=== PATIENT | female | born 1935 | race Caucasian/White ===

== ENCOUNTER 2017-02-13 12:24 | Outpatient (CLI) | payer MEDICARE ==
[2017-02-13 14:05] LABS: ALT (SGPT) 27 U/L (0-55); AST (SGOT) 18 U/L (5-34); Albumin 3.9 g/dL (3.4-4.8); Alkaline Phosphatase 65 U/L (40-150); Anion Gap 14 mmol/L (10-20); BUN (Urea Nitrogen) 18 mg/dL (9.8-20.1); Bilirubin, Total 0.9 mg/dL (0.2-1.2); Calc. Creatinine Clearance 0 mL/min (70-130); Calcium 9.1 mg/dL (7.8-10.44); Carbon Dioxide 26 mmol/L (23-31); Cardiac Risk 2.9 (Less than 4.5); Chloride 106 mmol/L (98-107); Cholesterol 171 mg/dL (< 200 Desired); Estimated GFR-MDRD 63; Globulin 2.6 g/dL (2.4-3.5); Glucose 83 mg/dL (83-110); HDL Cholesterol 58 mg/dL (>60 Neg Risk); LDL Cholesterol, Calculated 103 mg/dL; Potassium 4.2 mmol/L (3.5-5.1); Protein, Total 6.5 g/dL (5.8-8.1); Sodium 142 mmol/L (136-145); Triglycerides 51 mg/dL (Less than 150)
[2017-02-13 14:06] LABS: #Basophils 0.1 thou/uL (0.0-0.2); #Eosinphils 0.2 thou/uL (0.0-0.7); #Lymphocytes 1.5 thou/uL (1.20-3.40); #Monocytes 0.4 thou/uL (0.11-0.59); #Neutrophils 4.4 thou/uL (1.40-6.50); %Eosinophils 2.8 % (0.0-10.0); %Monocytes 6.7 % (0.0-10.0); %Neutrophils 66.5 % (42.0-75.0); Hemoglobin 13.8 g/dL (12.0-16.0); Mean Corpuscular HGB CONC 33.3 g/dL (32.0-36.0); Mean Corpuscular Hemoglobin 30.4 pg (27.0-31.0); Mean Corpuscular Volume 91.3 fl (81.0-99.0); Mean Platelet Volume 7.6 fL (7.4-10.4); Platelet Count 193 thou/uL (130-400); RBC Distribution Width 12.7 % (11.5-14.5); Red Blood Cell (RBC) Count 4.53 mill/uL (4.20-5.40); White Blood Cell (WBC) Count 6.6 thou/uL (4.8-10.8)
[2017-02-13 15:02] LABS: Bilirubin Negative (Negative); Blood, Urine Negative (Negative); Clarity SL HAZY (Clear); Glucose, Urine (Dipstick) Negative (Negative); Leukocyte Negative (Negative); Nitrite Negative (Negative); Protein, Urine (Dipstick) Negative (Neg-Trace); Urobilinogen 0.2 mg/dL (0.2-1.0); pH, Urine 6.5 (5.0-9.0)
== END 2017-02-13 12:25 | disposition home or self-care (01) ==
LOC: NAVSJIPCSP 12:24
PROVIDERS: ATTEND Internal Medicine
DX: C50.919 Malignant neoplasm of unspecified site of unspecified female breast (principal); M19.90 Unspecified osteoarthritis, unspecified site; I10 Essential (primary) hypertension; K21.9 Gastro-esophageal reflux disease without esophagitis; M25.551 Pain in right hip
CPT/HCPCS: 36415; 80053; 80061; 81003; 84443; 85025

== ENCOUNTER 2019-11-26 05:15 | Emergency (ER) | payer MEDICARE ==
[2019-11-26] MEDS ORDERED: Ondansetron PF 4 MG/2 ML Vial ONE (07:31)
[2019-11-26] MEDS ORDERED: Morphine 4 MG/ML VIAL ONE (07:31)
--- NOTE | 2019-11-26 07:42 | CT ---
PRELIMINARY REPORT/DIRECT RADIOLOGY/EMERGENCY AFTER HOURS PROCEDURE: PROCEDURE: CT Pelvis without IV Contrast Material . HISTORY: History . TECHNIQUE: Axial images were performed without IV contrast with multiplanar reconstructions. COMPARISONS: None . FINDINGS: Impacted subcapital femoral neck fracture on the LEFT. No other fracture or dislocation. Mild to mo derate osteoarthritic changes both hips with joint space narrowing and spur formation. Severely degenerated disc L5-S1 with vacuum phenomenon. Partially visualized 6 cm lipoma involving external o blique muscle on the LEFT. No other soft tissue abnormality. IMPRESSION: Acute impacted subcapital femoral neck fracture on the LEFT. No other acute change iden tified. ELECTRONICALLY SIGNED BY: Misha Clark MD Nov 26, 2019 6:40:46 AM SURVEYOR [employer]PER FINAL REPORT CT PELVIS WITHOUT CONTRAST: History: Fall. Pain. Comparison: Radiograph same day. Findings: Atypical fat-containing mass within the left oblique musculature. Asymmetric enlargement of the left external iliac vein. Inflammatory changes along the left anterior hip with small left pelvic sidewall hematoma. There is also hematoma extending into the left iliacus and psoas muscle. Acute impacted left femoral neck fracture. The obturator ring is intact. Impression: Findings and impression are concordant with the preliminary report. Transcribed Date/Time: 11/26/2019 7:51 AM
--- NOTE | 2019-11-26 07:48 | RAD ---
XR Hip Lt 2-3 View History: Pain. Fall Comparison: PET/CT exam 2019 Findings: Acute impacted left femoral neck fracture Impression: Acute impacted left femoral neck fracture.
--- NOTE | 2019-11-26 07:49 | RAD ---
XR Pelvis AP STANDARD History: Pain. Fall Comparison: None. Findings: Acute impacted left femoral neck fracture. Obturator rings are intact. Small bilateral acet abular osteophytes. Impression: Acute impacted left femoral neck fracture.
== END 2019-11-26 08:43 | disposition short-term general hospital (02) ==
LOC: NAV ERS 05:15
DX: S72.012A Unspecified intracapsular fracture of left femur, initial encounter for closed fracture (principal); I48.91 Unspecified atrial fibrillation; K21.9 Gastro-esophageal reflux disease without esophagitis; I10 Essential (primary) hypertension; Z79.899 Other long term (current) drug therapy; W01.0XXA Fall on same level from slipping, tripping and stumbling without subsequent striking against object, initial encounter
CPT/HCPCS: 72170; 72192; 96374; 96375; J2270; J2405

== ENCOUNTER 2019-11-29 16:47 | Inpatient (IN) | payer MEDICARE ==
[2019-11-29 20:33] VITALS: BMI 35.6
[2019-11-29] MEDS: traMADol HCl 50 MG TAB PO PRN (22:47)
[2019-11-29] MEDS: Docusate 100 MG CAP PO SCH (22:47)
[2019-11-29] MEDS: Melatonin 3 MG TAB PO PRN (22:49)
[2019-11-29] MEDS: Apixaban 5 MG TAB PO SCH (22:49)
[2019-11-30 05:45] LABS: ALT (SGPT) 17 U/L (8-55); AST (SGOT) 16 U/L (5-34); Anion Gap 12 mmol/L (10-20); BUN (Urea Nitrogen) 15 mg/dL (9.8-20.1); Bilirubin, Total 0.7 mg/dL (0.2-1.2); Calc. Creatinine Clearance 88 mL/min (70-130); Calcium 8.8 mg/dL (7.8-10.44); Carbon Dioxide 29 mmol/L (23-31); Chloride 99 mmol/L (98-107); Estimated GFR-MDRD 76; Globulin 2.5 g/dL (2.4-3.5); Glucose 97 mg/dL (83-110); Potassium 3.5 mmol/L (3.5-5.1); Protein, Total 5.5 g/dL (6.0-8.3); Sodium 136 mmol/L (136-145)
[2019-11-30 06:07] LABS: Band 3 % (5-11); Eosinophils 2 % (0-10); Hemoglobin 9.2 g/dL (12.0-16.0); Lymphocytes 25 % (21-51); MDiff Complete? YES; Mean Corpuscular HGB CONC 32.9 g/dL (32.0-36.0); Mean Corpuscular Hemoglobin 29.7 pg (27.0-31.0); Mean Corpuscular Volume 90.2 fL (78.0-98.0); Mean Platelet Volume 7.9 fL (7.4-10.4); Monocytes 3 % (0-10); Neutrophil 67 % (42-75); Platelet Count 238 thou/uL (130-400); Platelet Morphology Comment Appears Adequate; RBC Distribution Width 12.5 % (11.5-14.5); RBC Morphology Normal; White Blood Cell (WBC) Count 3.9 thou/uL (4.8-10.8)
[2019-11-30] MEDS: Potassium Chloride 10 MEQ TAB PO SCH (08:18)
[2019-11-30] MEDS: Docusate 100 MG CAP PO SCH ×2 (08:19→21:28)
[2019-11-30] MEDS: Loratadine 10 MG TAB PO SCH (08:19)
[2019-11-30] MEDS: Losartan 25 MG TAB PO SCH (08:19)
[2019-11-30] MEDS: Furosemide 40 MG TAB PO SCH (08:19)
[2019-11-30] MEDS: Apixaban 5 MG TAB PO SCH ×2 (08:19→21:28)
[2019-11-30] MEDS: traMADol HCl 50 MG TAB PO PRN ×2 (08:20→21:26)
[2019-11-30] MEDS ORDERED: Prevnar 13-Val Conj/PF 0.5 ML SYRINGE IM ONE (09:00)
[2019-11-30] MEDS ORDERED: FLU VACC QS2019-20(6MOS UP)/PF 60 MCG/0.5 ML SYRINGE IM ONE (09:00)
[2019-11-30 09:10] LABS: Alkaline Phosphatase 132 U/L (40-110)
--- NOTE | 2019-11-30 13:58 | HP ---
CHIEF COMPLAINT: Left hip fracture, status post open reduction and internal fixation for therapy. BRIEF HISTORY: This is an 84-year-old female, who apparently fell 2 days prior to admission when she tripped over her dog. She continued to have significant pain and so was brought to the emergency room for evaluation and was diagnosed with the left femoral neck fracture. She was transferred to [facility] and underwent surgical fixation. She was felt to be a candidate for inpatient rehabilitation and transferred here. The patient is resting in her chair and states she had a shower and is feeling good. Her pain is controlled. Denies any fever or chills. No family at bedside. PAST MEDICAL HISTORY: 1. B-cell lymphoma, on chemotherapy. 2. Atrial fibrillation, on chronic anticoagulation. 3. Hypertension. 4. Gastroesophageal reflux disease. PAST SURGICAL HISTORY: 1. MediPort placement. 2. Left femoral neck pinning just done recently. MEDICATIONS: She has been transferred here on the following medications: 1. Eliquis 5 mg b.i.d. 2. Vitamin D3 of 1000 units daily. 3. Colace 100 mg b.i.d. 4. Lasix 40 mg daily. 5. Claritin 10 mg daily. 6. Cozaar 25 mg daily. 7. Melatonin 3 mg at bedtime. 8. Toprol-XL 25 mg daily. 9. Protonix 40 mg daily. 10. Potassium 10 mEq daily. 11. Tramadol 100 mg p.o. q.4 p.r.n. ALLERGIES: 1. PENICILLIN. 2. CELEBREX. PSYCHOSOCIAL HISTORY: She is . Denies any tobacco, alcohol, or recreational drug abuse. FAMILY HISTORY: Noncontributory to current admission. REVIEW OF SYSTEMS: CARDIOVASCULAR: Denies any chest pain, shortness of breath, palpitations, PND, orthopnea, or pedal edema. RESPIRATORY: Denies any chronic cough, expectoration, or pleuritic-type chest pain. GASTROINTESTINAL: Denies any nausea, vomiting, diarrhea, constipation, hematemesis, melena, or hematochezia. GENITOURINARY: Denies any frequency, urgency, dysuria, or hematuria. CENTRAL NERVOUS SYSTEM: Denies any focal numbness, weakness, or fainting spells. MUSCULOSKELETAL: Complains of left hip pain. HEENT: Denies any difficulty with speech, vision, hearing, or swallowing. SKIN: Denies any rash. PHYSICAL EXAMINATION: GENERAL: Very pleasant, 84-year-old, female, who is up in her chair and denies any complaints. She responds appropriately to questions. She is alert, awake, and oriented x3. VITAL SIGNS: She is afebrile, heart rate is 84, respirations 18, oxygen saturation 92% on room air, blood pressure 124/60. HEENT: Normocephalic and atraumatic. Pupils are equally reactive to light and accommodation. Extraocular muscles are intact. NECK: No JVD, thyromegaly, cervical lymphadenopathy, or throat exudates. No carotid bruits. CARDIOVASCULAR: S1 and S2 plus. Rate and rhythm, regular. RESPIRATORY: Normal vesicular breath sounds heard in all lung esparza. ABDOMEN: Soft and nontender. Bowel sounds heard in all quadrants. EXTREMITIES: Without cyanosis or clubbing. Trace edema to left leg. Left hip incision with dressing. CENTRAL NERVOUS SYSTEM: AAO x3. Cranial nerves 2 through 12 intact. Generalized weakness. Otherwise, nonfocal. LABORATORY VALUE: Shows a white count of 3.9, H and H are 9.2 and 28. Sodium 136, potassium 3.5, BUN and creatinine are 15 and 0.73. IMPRESSION: 1. Left hip fracture, status post surgical fixation. 2. Hypertension. 3. Atrial fibrillation. 4. B-cell lymphoma, on chemotherapy. 5. Anemia, likely due to chronic disease. PLAN: 1. Continue current medications. 2. Heart-healthy diet. 3. Monitor heart rate and rhythm. 4. Monitor blood pressure and adjust medications as needed. 5. Orthopedic precautions and incision care. 6. DVT prophylaxis per orthopedic surgeon's recommendations - the patient is already on Eliquis. 7. Decubitus precautions. 8. Stress ulcer prophylaxis. 9. Physical therapy and occupational therapy eval and treat. 10. Routine laboratory values. 11. Discussed with the patient in detail. All questions answered. Job ID: [id number]
[2019-11-30] MEDS: Melatonin 3 MG TAB PO PRN (21:28)
[2019-12-01] MEDS: Furosemide 40 MG TAB PO SCH (08:33)
[2019-12-01] MEDS: Apixaban 5 MG TAB PO SCH ×2 (08:33→20:53)
[2019-12-01] MEDS: Docusate 100 MG CAP PO SCH ×2 (08:33→20:53)
[2019-12-01] MEDS: Potassium Chloride 10 MEQ TAB PO SCH (08:33)
[2019-12-01] MEDS: Loratadine 10 MG TAB PO SCH (08:33)
[2019-12-01] MEDS: Losartan 25 MG TAB PO SCH (08:34)
--- NOTE | 2019-12-01 13:05 | PRG ---
DATE OF SERVICE: 12/01/2019 SUBJECTIVE: Ms. Perez is up in her chair eating lunch. She denies any questions or concerns. She is happy with her progress. No family at bedside. OBJECTIVE: VITAL SIGNS: She is afebrile, heart rate 83, respirations 22, oxygen saturation 95% on room air, blood pressure 111/55. CARDIOVASCULAR: S1 and S2 plus. RESPIRATORY: Normal vesicular breath sounds. ABDOMEN: Soft and nontender. Bowel sounds heard in all quadrants. EXTREMITIES: Without cyanosis or clubbing. Hip incision is healthy. IMPRESSION: 1. Left hip fracture, status post open reduction and internal fixation. 2. Atrial fibrillation, on chronic anticoagulation. 3. Hypertension. 4. Gastroesophageal reflux disease. 5. B-cell lymphoma, on chemotherapy. PLAN: 1. Continue current medications. 2. Heart-healthy diet. 3. DVT prophylaxis - the patient is on Eliquis. 4. Decubitus precautions. 5. Stress ulcer prophylaxis. 6. Incision care. 7. Orthopedic precautions. 8. Physical therapy. 9. Dr. Reva [facility]. Job ID: [id number]
[2019-12-01] MEDS: traMADol HCl 50 MG TAB PO PRN ×2 (15:17→23:32)
[2019-12-01] MEDS: Melatonin 3 MG TAB PO PRN (20:55)
[2019-12-02] MEDS: Apixaban 5 MG TAB PO SCH ×2 (08:28→21:14)
[2019-12-02] MEDS: Losartan 25 MG TAB PO SCH (08:28)
[2019-12-02] MEDS: Loratadine 10 MG TAB PO SCH (08:28)
[2019-12-02] MEDS: Potassium Chloride 10 MEQ TAB PO SCH (08:28)
[2019-12-02] MEDS: Furosemide 40 MG TAB PO SCH (08:29)
[2019-12-02] MEDS: Docusate 100 MG CAP PO SCH ×2 (08:29→21:12)
[2019-12-02] MEDS: traMADol HCl 50 MG TAB PO PRN ×2 (08:58→21:13)
[2019-12-02] MEDS ORDERED: Magnesium Citrate 300 ML BOT PO SCH (19:30)
[2019-12-02] MEDS: Melatonin 3 MG TAB PO PRN (21:14)
[2019-12-03] MEDS: Docusate 100 MG CAP PO SCH ×2 (08:21→20:47)
[2019-12-03] MEDS: Apixaban 5 MG TAB PO SCH ×2 (08:21→20:47)
[2019-12-03] MEDS: Potassium Chloride 10 MEQ TAB PO SCH (08:21)
[2019-12-03] MEDS: Loratadine 10 MG TAB PO SCH (08:22)
[2019-12-03] MEDS: Losartan 25 MG TAB PO SCH (08:22)
[2019-12-03] MEDS: Furosemide 40 MG TAB PO SCH (08:22)
[2019-12-03] MEDS: traMADol HCl 50 MG TAB PO PRN (08:23)
[2019-12-03 20:19] VITALS: TEMP 97.4
[2019-12-03] MEDS: Melatonin 3 MG TAB PO PRN (20:47)
[2019-12-04 08:20] VITALS: BP 135/75
[2019-12-04] MEDS: Apixaban 5 MG TAB PO SCH (09:01)
[2019-12-04] MEDS: Docusate 100 MG CAP PO SCH (09:01)
[2019-12-04] MEDS: Losartan 25 MG TAB PO SCH (09:01)
[2019-12-04] MEDS: Loratadine 10 MG TAB PO SCH (09:01)
[2019-12-04] MEDS: Potassium Chloride 10 MEQ TAB PO SCH (09:01)
[2019-12-04] MEDS: Furosemide 40 MG TAB PO SCH (09:01)
--- NOTE | 2019-12-05 00:10 | DIS ---
DATE OF ADMISSION: 11/29/2019 DATE OF DISCHARGE: 12/04/2019 PRINCIPAL DIAGNOSIS: Left hip fracture, status post open reduction and internal fixation. SECONDARY DIAGNOSES: 1. B-cell lymphoma. 2. Atrial fibrillation. 3. Hypertension. 4. Gastroesophageal reflux disease. 5. Improved deconditioning. COMPLICATIONS: None. ADVERSE REACTIONS: None. PROCEDURES: None. CONSULTATIONS: Physical Therapy and Occupational Therapy. HOSPITAL COURSE: The patient was admitted on 11/29 after suffering a fall when she tripped over her dog. She was noticed to have a hip fracture, for which she underwent surgical fixation. She was sent here for therapy. She has done remarkably well and was deemed medically stable and safe to be discharged today. She states that she does not need any prescriptions. Her son is here to pick her up. Home health has apparently been arranged. PHYSICAL EXAMINATION: VITAL SIGNS: On the day of discharge, she is afebrile, heart rate 79, respirations 16, oxygen saturation 98% on room air, and blood pressure 135/75. CARDIOVASCULAR: S1, S2 plus. RESPIRATORY: Normal vesicular breath sounds. ABDOMEN: Soft, nontender. Bowel sounds heard in all quadrants. EXTREMITIES: Without cyanosis or clubbing. CENTRAL NERVOUS SYSTEM: Grossly nonfocal. DISCHARGE MEDICATIONS: Same as admission, which is; 1. Eliquis 5 mg b.i.d. 2. Vitamin D3 1000 units daily. 3. Colace 100 mg b.i.d. 4. Lasix 40 mg daily. 5. Claritin 10 mg daily. 6. Cozaar 25 mg daily. 7. Melatonin 3 mg at bedtime p.r.n. 8. Toprol-XL 25 mg daily. 9. Protonix 40 mg daily. 10. Potassium 10 mEq daily. 11. Tramadol 100 mg p.o. q.4 hours p.r.n. pain. DISCHARGE INSTRUCTIONS: 1. Continue to follow orthopedic restrictions. 2. Heart healthy diet. 3. Outpatient followup with Dr. Ardon and the surgeon. 4. Home health. 5. The patient was advised to call us with any questions or concerns. She did not need any prescriptions. Job ID: [id number]
== END 2019-12-04 10:40 | disposition home health service (06) | DRG 560 ==
LOC: NAV ACUTE 16:47
PROVIDERS: ADMIT Internal Medicine; ATTEND Internal Medicine
DX: Z47.89 Encounter for other orthopedic aftercare (principal); I48.20 Chronic atrial fibrillation, unspecified; C85.10 Unspecified B-cell lymphoma, unspecified site; I10 Essential (primary) hypertension; K21.9 Gastro-esophageal reflux disease without esophagitis; Z98.890 Other specified postprocedural states; Z79.899 Other long term (current) drug therapy; S72.092D Other fracture of head and neck of left femur, subsequent encounter for closed fracture with routine healing; W18.39XD Other fall on same level, subsequent encounter; Z88.0 Allergy status to penicillin; Z88.5 Allergy status to narcotic agent; R53.81 Other malaise
CPT/HCPCS: 80053; 85025

== ENCOUNTER 2020-03-14 18:07 | Outpatient (CLI) | payer MEDICARE ==
--- NOTE | 2020-03-14 19:01 | RAD ---
RIGHT HUMERUS THRREE VIEWS: 03/14/20 INDICATION: History of a nondisplaced proximal right humerus fracture. COMPARISON: None. FINDINGS: There is a comminuted three part proximal right humerus fracture. Glenohumeral alignment appears with in normal limits. There is severe right AC joint osteoarthrosis. Visualized right lung is clear. Ther e is a right injectable port in place. IMPRESSION: Mildly displaced three part proximal right humerus fracture. POS: [facility]
== END 2020-03-14 18:08 | disposition home or self-care (01) ==
LOC: NAV RAD 18:07
PROVIDERS: ATTEND Internal Medicine
DX: S42.201D Unspecified fracture of upper end of right humerus, subsequent encounter for fracture with routine healing (principal)

== ENCOUNTER 2020-03-28 18:03 | Outpatient (CLI) | payer MEDICARE ==
--- NOTE | 2020-03-28 18:32 | RAD ---
2 views right humerus: 03/28/2020 COMPARISON: 02/25/2020, 03/14/2020 HISTORY: Reevaluate fracture of the proximal humerus FINDINGS: As seen on the prior examination there is an obliquely oriented proximal right humeral neck /shaft fracture. There is mild interval callus formation laterally. Similar degree of comminution and impaction noted. No widening of the acromioclavicular or coracoclavicular interspace. No new frac ture is noted. IMPRESSION: Mild interval increase in callus formation associated with the patient's proximal right h umerus fracture. Fracture line is still well seen with a similar degree of comminution and impaction when compared to prior imaging.
== END 2020-03-28 18:04 | disposition home or self-care (01) ==
LOC: NAV RAD 18:03
PROVIDERS: ATTEND Internal Medicine
DX: S42.291D Other displaced fracture of upper end of right humerus, subsequent encounter for fracture with routine healing (principal); L84 Corns and callosities

== ENCOUNTER 2020-04-12 16:28 | Emergency (ER) | payer MEDICARE ==
[2020-04-12] MEDS ORDERED: Adacel (T-DAP) 0.5 ML SYRINGE ONE (16:58)
--- NOTE | 2020-04-12 17:25 | CT ---
CT BRAIN WITHOUT CONTRAST: HISTORY: Head trauma. Patient is on anticoagulant therapy. Right-sided head pain. No loss of consciou sness FINDINGS: No evidence of acute infarct, hemorrhage, midline shift or abnormal extra-axial fluid collections is seen. The ventricular size is appropriate and the basilar cisterns are patent. The bony calvarium is intact. There is a mucous retention cyst versus polyp in the right maxillary sinus. Right periorbi yasmine soft tissue swelling is present. IMPRESSION: No CT evidence of acute intracranial process.
--- NOTE | 2020-04-12 17:54 | CT ---
CT CERVICAL SPINE WITH CORONAL AND SAGITTAL REFORMATIONS: 04/12/20 HISTORY: Trauma, neck pain. FINDINGS/IMPRESSION: Multilevel degenerative changes are present. No acute fracture, subluxation or facet malalignment is seen. POS: [facility]
== END 2020-04-12 18:10 | disposition home or self-care (01) ==
LOC: NAV ERS 16:28
DX: S01.111A Laceration without foreign body of right eyelid and periocular area, initial encounter (principal); I48.91 Unspecified atrial fibrillation; K21.9 Gastro-esophageal reflux disease without esophagitis; I10 Essential (primary) hypertension; Z79.899 Other long term (current) drug therapy; W18.30XA Fall on same level, unspecified, initial encounter
CPT/HCPCS: 12013; 70450; 72125; 90471; 90715

== ENCOUNTER 2020-04-27 15:31 | Outpatient (CLI) | payer MEDICARE ==
--- NOTE | 2020-04-27 19:13 | RAD ---
EXAM: RIGHT HUMERUS TWO VIEWS: 04/27/20 HISTORY: Fracture of proximal humerus. COMPARISON: 03/28/20. FINDINGS: Comminuted fracture of the humeral neck with some foreshortening. There is some bony callus, although there is persistent incomplete union. IMPRESSION: Bone demineralization. Comminuted proximal humeral neck fracture with bony callus but incomplete bony union. No dislocation. Continued short term follow-up. POS: [facility]
== END 2020-04-27 15:32 | disposition home or self-care (01) ==
LOC: NAV RAD 15:31
PROVIDERS: ATTEND Internal Medicine
DX: S42.291K Other displaced fracture of upper end of right humerus, subsequent encounter for fracture with nonunion (principal); M81.0 Age-related osteoporosis without current pathological fracture

== ENCOUNTER 2020-06-28 15:15 | Outpatient (CLI) | payer MEDICARE ==
--- NOTE | 2020-06-28 15:56 | RAD ---
Lumbar spine 3 views: 06/28/2020 COMPARISON: None HISTORY: Back pain FINDINGS: Anterolisthesis of L5 on S1 noted measuring 1 cm. Bilateral facet hypertrophy present at L3 -4, L4-5, and L5-S1. At T11-12, T12-L1, and L1-2 there is disc space narrowing with degenerative endplate change and anter ior osteophyte formation. Bilateral L5 pars defects are suspected. No acute fracture is seen. IMPRESSION: Chronic findings as detailed above.
== END 2020-06-28 15:16 | disposition home or self-care (01) ==
LOC: NAV RAD 15:15
PROVIDERS: ATTEND Internal Medicine
DX: M54.32 Sciatica, left side (principal)
CPT/HCPCS: 72100

== ENCOUNTER 2020-07-13 10:53 | Emergency (ER) | payer MEDICARE ==
[2020-07-13] MEDS ORDERED: Morphine 2 MG/ML SYRINGE ONE (12:47)
--- NOTE | 2020-07-13 13:33 | RAD ---
LEFT HIP TWO VIEWS: 07/13/20 COMPARISON: 11/26/19. HISTORY: Pain. FINDINGS: There appear to be two internal fixation screws traversing a previously identified left femoral neck fracture. On the current exam, there appears to be collapse on the superolateral aspect of the humer al head. Subtle lucency may be present suggesting an acute process. Better interrogation with a left hip CT is recommended. IMPRESSION: Findings suggesting collapse of the left femoral head with possible acute injury. Better interrogatio n with CT is recommended. POS: [facility]
--- NOTE | 2020-07-13 14:17 | CT ---
CT LEFT HIP WITHOUT CONTRAST: 07/13/20 HISTORY: Pain. COMPARISON: Hip radiograph same day. CT of hips and pelvis 04/17/20. Pelvis radiograph 11/26/19. FINDINGS: No SI joint widening. There is avascular necrosis with nonunion of the left subcapital femoral neck f racture. Now there is an articular surface collapse of the left femoral head with loss of sphericity. There is [id number] articulation of the anterior femoral head and acetabulum. The visualized right femoral head is intact. The obturator rings are intact. No free fluid in the abdomen. Mild left hip joint effusion. 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 There is anterior femoral head/aceta bular [id number] articulation. Arthroplasty evaluation recommended. POS: [facility]
== END 2020-07-13 14:05 | disposition home or self-care (01) ==
LOC: NAV ERS 10:55
DX: S72.012A Unspecified intracapsular fracture of left femur, initial encounter for closed fracture (principal); M87.9 Osteonecrosis, unspecified; I48.91 Unspecified atrial fibrillation; K21.9 Gastro-esophageal reflux disease without esophagitis; I10 Essential (primary) hypertension; Z79.899 Other long term (current) drug therapy; X58.XXXA Exposure to other specified factors, initial encounter
CPT/HCPCS: 96372; J2270

== ENCOUNTER 2020-08-19 16:59 | Inpatient (IN) | payer MEDICARE ==
[2020-08-19] MEDS: Docusate 100 MG CAP PO SCH (21:14)
[2020-08-19] MEDS: Apixaban 5 MG TAB PO SCH (21:14)
[2020-08-19] MEDS: Dronedarone HCl 400 MG TAB PO SCH (21:14)
[2020-08-19] MEDS: HYDROcodone/Acetaminophen 5/325 mg Tablet PO SCH (23:41)
[2020-08-20 05:34] LABS: Anion Gap 12 mmol/L (10-20); BUN (Urea Nitrogen) 15 mg/dL (9.8-20.1); Band 7 % (5-11); Calc. Creatinine Clearance 98 mL/min (70-130); Calcium 7.7 mg/dL (7.8-10.44); Carbon Dioxide 23 mmol/L (23-31); Chloride 107 mmol/L (98-107); Eosinophils 4 % (0-10); Estimated GFR-MDRD 81; Glucose 96 mg/dL (83-110); Hemoglobin 8.9 g/dL (12.0-16.0); Lymphocytes 15 % (21-51); MDiff Complete? YES; Mean Corpuscular HGB CONC 32.1 g/dL (32.0-36.0); Mean Corpuscular Hemoglobin 29.6 pg (27.0-31.0); Mean Corpuscular Volume 92.4 fL (78.0-98.0); Mean Platelet Volume 8.4 fL (7.4-10.4); Metamyelocyte 3 % (0-0); Monocytes 2 % (0-10); Myelocyte 1 % (0-0); Neutrophil 67 % (42-75); Platelet Count 131 thou/uL (130-400); Platelet Morphology Comment Appears Adequate; RBC Distribution Width 15.2 % (11.5-14.5); RBC Morphology Normal; Reactive Lymphocytes 1 % (0-10); Red Blood Cell (RBC) Count 2.99 mill/uL (4.20-5.40); Sodium 138 mmol/L (136-145); White Blood Cell (WBC) Count 3.8 thou/uL (4.8-10.8)
[2020-08-20] MEDS: Levothyroxine 150 MCG TAB PO SCH (05:42)
[2020-08-20] MEDS: HYDROcodone/Acetaminophen 5/325 mg Tablet PO SCH ×3 (05:43→17:42)
[2020-08-20] MEDS: Losartan 25 MG TAB PO SCH (08:56)
[2020-08-20] MEDS: Apixaban 5 MG TAB PO SCH ×2 (08:56→20:52)
[2020-08-20] MEDS: Dronedarone HCl 400 MG TAB PO SCH ×2 (08:56→20:52)
[2020-08-20] MEDS: Docusate 100 MG CAP PO SCH ×2 (08:56→20:52)
[2020-08-20] MEDS: Melatonin 3 MG TAB PO PRN (20:52)
--- NOTE | 2020-08-20 23:35 | HP ---
PRINCIPAL DIAGNOSIS: Left hip arthritis, status post total left hip arthroplasty for therapy. SECONDARY DIAGNOSES: 1. Paroxysmal atrial fibrillation. 2. History of lymphoma, in remission. 3. Hypertension. 4. Gastroesophageal reflux disease. 5. Osteoarthritis. 6. Hypothyroidism. HISTORY OF PRESENTING ILLNESS: The patient recently underwent left hip arthroplasty and has been transferred here for therapy. She is resting in bed and denies any concerns. Her pain is controlled. She states that she did not sleep well and would like something for sleep. She is back on for an Eliquis. She states that she had a bad reaction to Celebrex and she does not want to take it. She denies any other questions or concerns. PAST SURGICAL HISTORY: 1. MediPort placement. 2. Left femoral neck pinning done recently. 3. Recent total hip arthroplasty. ALLERGIES: PENICILLIN AND CELEBREX. PSYCHOSOCIAL HISTORY: . Denies any tobacco, alcohol or recreational drug abuse. FAMILY HISTORY: Noncontributory to current admission. MEDICATIONS: She has been transferred here on the following medications: 1. [place] 5/325 one tab q.6h p.o. p.r.n. 2. Eliquis 5 mg b.i.d. 3. Colace 100 mg b.i.d. 4. Multaq 400 mg b.i.d. 5. Levoxyl 150 mcg daily in the morning. 6. Cozaar 25 mg daily. 7. Toprol-XL 25 mg at bedtime. REVIEW OF SYSTEMS: GENERAL: Denies any fever, weight gain or fatigue. RESPIRATORY SYSTEM: Denies any chronic cough, expectoration, or pleuritic-type chest pain. GASTROINTESTINAL SYSTEM: Denies any nausea, vomiting, diarrhea, constipation, hematemesis, melena or hematochezia. GENITOURINARY SYSTEM: Denies any frequency, urgency, dysuria, or hematuria. CENTRAL NERVOUS SYSTEM: Denies any focal numbness, weakness, or fainting spells. EXTREMITIES: Does complain of left hip pain. SKIN: Denies any rash. ENT: Denies any changes with speech, vision, hearing, or swallowing. PHYSICAL EXAMINATION: GENERAL: Pleasant 84-year-old female, who is resting in bed and denies any complaints. She is alert, awake, and oriented x3. VITAL SIGNS: She is afebrile. Heart rate 73, respirations 18, oxygen saturation 97% on room air and blood pressure is 112/55. HEENT: Normocephalic, atraumatic. Pupils equally reactive to light and accommodation. Extraocular muscles intact. NECK: No JVD, thyromegaly, cervical myopathy or throat exudates. No carotid bruits. CARDIOVASCULAR SYSTEM: S1 and S2 plus. Irregularly irregular. RESPIRATORY SYSTEM: Normal vesicular breath sounds heard in all lung esparza with decreased air entry in the bases. ABDOMEN: Soft, obese, and nontender. Bowel sounds heard in all quadrants. EXTREMITIES: Without cyanosis or clubbing. Trace edema, left leg. Left hip incision with dressing. CENTRAL NERVOUS SYSTEM: AAO x3. Cranial nerves 2 through 12 intact. Generalized weakness. Otherwise, nonfocal. LABORATORY DATA: Laboratory values done this morning shows a white count of 3.8, H and H are 8.9 and 27.6. Sodium 138, potassium 4.0, BUN and creatinine 15 and 0.69. IMPRESSION: 1. Left hip arthroplasty for failed pinning of left hip fracture. 2. Hypertension. 3. Hypothyroidism. 4. Atrial fibrillation. 5. Osteoarthritis. 6. Anemia, likely due to acute blood loss. PLAN: 1. Continue current medications. 2. Heart healthy diet. 3. Monitor blood pressure and adjust medications as needed. 4. Orthopedic precautions. 5. DVT prophylaxis-she is on Eliquis. 6. Decubitus precaution. 7. Stress ulcer prophylaxis. 8. PT/OT eval and treat. 9. Melatonin 10 mg at bedtime for insomnia. 10. Dr. Ardon will assume care at 9:00 p.m. raj. Job ID: [id number]
[2020-08-21] MEDS: HYDROcodone/Acetaminophen 5/325 mg Tablet PO SCH ×4 (00:03→16:37)
[2020-08-21] MEDS: Levothyroxine 150 MCG TAB PO SCH (05:50)
[2020-08-21 07:16] VITALS: BMI 40.8
[2020-08-21] MEDS: Apixaban 5 MG TAB PO SCH ×2 (08:42→22:31)
[2020-08-21] MEDS: Docusate 100 MG CAP PO SCH ×2 (08:43→22:31)
[2020-08-21] MEDS: Dronedarone HCl 400 MG TAB PO SCH ×2 (08:43→22:32)
[2020-08-21] MEDS: Losartan 25 MG TAB PO SCH (08:47)
--- NOTE | 2020-08-21 14:32 | PRG ---
DATE OF SERVICE: 08/21/2020 SUBJECTIVE: The patient is lying in the bed, feels better with greatly decreased hip pain, is having increasing strength, and is cooperating with therapy. Denying any shortness of breath or chest pain. She is complaining of a new onset this morning of significant edema of the entire left arm. OBJECTIVE: LUNGS: Clear. CARDIAC: An irregular rhythm. VITAL SIGN: Temperature 96.9, pulse 70, respirations 18, O2 saturation is 95% on room air, and blood pressure is 140/72. EXTREMITIES: Left arm is markedly swollen, but nontender with no erythema or warmth. LABORATORY DATA: Recent admission laboratories were essentially nondiagnostic with only postoperative anemia of 8.9. ASSESSMENT: 1. Resolving left total hip replacement, deconditioning. 2. Paroxysmal atrial fibrillation with rate control and anticoagulation, now in sinus rhythm. 3. History of lymphoma, in remission. 4. Significant osteoarthritis, status post left hip replacement for degenerative joint disease. 5. Deconditioning. PLAN: 1. Continue PT and OT. 2. Continue [place] for pain. 3. Continue rate control Multaq and anticoagulation with apixaban. 4. Continue to monitor vital signs and control blood pressure with Cozaar. 5. Obtain venous Doppler of left upper arm as it does appear to be swollen. Job ID: [id number]
[2020-08-21] MEDS: Melatonin 3 MG TAB PO PRN (22:38)
[2020-08-22] MEDS: HYDROcodone/Acetaminophen 5/325 mg Tablet PO SCH ×5 (00:27→23:27)
[2020-08-22] MEDS: Levothyroxine 150 MCG TAB PO SCH (05:46)
[2020-08-22] MEDS ORDERED: Bisacodyl 10 MG SUPP PR PRN (09:44)
[2020-08-22] MEDS: Losartan 25 MG TAB PO SCH (09:57)
[2020-08-22] MEDS: Apixaban 5 MG TAB PO SCH ×2 (09:57→21:09)
[2020-08-22] MEDS: Dronedarone HCl 400 MG TAB PO SCH ×2 (09:57→21:09)
[2020-08-22] MEDS: Docusate 100 MG CAP PO SCH ×2 (09:57→21:09)
[2020-08-22] MEDS: Melatonin 3 MG TAB PO PRN (21:08)
[2020-08-23] MEDS: Levothyroxine 150 MCG TAB PO SCH (05:27)
[2020-08-23] MEDS: HYDROcodone/Acetaminophen 5/325 mg Tablet PO SCH ×4 (05:27→17:59)
[2020-08-23] MEDS: Apixaban 5 MG TAB PO SCH ×2 (08:53→21:01)
[2020-08-23] MEDS: Dronedarone HCl 400 MG TAB PO SCH ×2 (08:53→21:01)
[2020-08-23] MEDS: Docusate 100 MG CAP PO SCH ×2 (08:53→21:01)
[2020-08-23] MEDS: Losartan 25 MG TAB PO SCH (08:53)
[2020-08-23] MEDS ORDERED: diphenhydrAMINE 25 MG CAP PO PRN (18:25)
[2020-08-23] MEDS: Polyethylene Glycol 3350 17 GM Packet PO SCH (21:00)
[2020-08-23] MEDS: Melatonin 3 MG TAB PO PRN (21:01)
[2020-08-24] MEDS: Levothyroxine 150 MCG TAB PO SCH (06:04)
--- NOTE | 2020-08-24 06:58 | PRG ---
DATE OF SERVICE: 08/22/2020 SUBJECTIVE: The patient is sitting up in a chair, feels well with controlled pain on [place]. She is having some problems with sleep despite melatonin, but is cooperating well with therapy and asking already when she can be discharged home. Her left arm appears to be swelling less and venous Doppler has been done. OBJECTIVE: Venous Doppler is negative. LUNGS: Clear. CARDIAC: Displays regular rhythm. ABDOMEN: Soft and nontender. MUSCULOSKELETAL: Left lateral hip incision healing well. VITAL SIGNS: Temperature is 98.1, pulse 76, respirations 18, O2 sats 97% on room air, and blood pressure is 137/65. ASSESSMENT: 1. Resolving left total hip replacement. 2. Stable paroxysmal atrial fibrillation with rate control and anticoagulation. 3. Resolving left arm swelling with no evidence of DVT. 4. History of lymphoma, in remission. 5. Deconditioning, improving. 6. History of gastrointestinal bleed secondary to NSAIDs in the past with refusal of NSAID. 7. Hypertension, controlled to goal. PLAN: 1. Continue PT/OT. Continue Multaq and apixaban. 2. Continue [place] for pain. 3. Continue melatonin for sleep and may add Benadryl. 4. Discuss discharge planning with PT. Job ID: [id number]
[2020-08-24 07:10] LABS: #Eosinphils 0.1 thou/uL (0.0-0.7); #Lymphocytes 0.7 thou/uL (1.20-3.40); #Monocytes 0.4 thou/uL (0.11-0.59); %Basophils 1.4 % (0.0-1.0); %Eosinophils 4.1 % (0.0-10.0); %Lymphocytes 20.9 % (21.0-51.0); %Monocytes 12.6 % (0.0-10.0); Hemoglobin 9.3 g/dL (12.0-16.0); Mean Corpuscular HGB CONC 32.6 g/dL (32.0-36.0); Platelet Count 185 thou/uL (130-400); RBC Distribution Width 15.3 % (11.5-14.5); White Blood Cell (WBC) Count 3.4 thou/uL (4.8-10.8)
[2020-08-24 07:25] LABS: ALT (SGPT) 11 U/L (8-55); AST (SGOT) 15 U/L (5-34); Alkaline Phosphatase 63 U/L (40-110); Anion Gap 13 mmol/L (10-20); BUN (Urea Nitrogen) 11 mg/dL (9.8-20.1); Bilirubin, Total 0.6 mg/dL (0.2-1.2); Calc. Creatinine Clearance 102 mL/min (70-130); Calcium 8.1 mg/dL (7.8-10.44); Carbon Dioxide 25 mmol/L (23-31); Chloride 106 mmol/L (98-107); Estimated GFR-MDRD 77; Globulin 2.2 g/dL (2.4-3.5); Glucose 89 mg/dL (83-110); Potassium 4.2 mmol/L (3.5-5.1); Protein, Total 5.2 g/dL (6.0-8.3); Sodium 140 mmol/L (136-145)
--- NOTE | 2020-08-24 07:28 | PRG ---
DATE OF SERVICE: 08/24/2020 SUBJECTIVE: The patient is sitting in a chair, feels well. She states she has had good control of her pain with hydrocodone, but is less because she is having recurrent problems constipation. She also is not sleeping well at night by taking the Melatonin. OBJECTIVE: VITAL SIGNS: Temperature is 98.1, pulse 84, respirations 18, O2 saturations 95% on room air, blood pressure 126/71. LUNGS: Clear. CARDIAC: Examination shows regular rhythm. ABDOMEN: Soft and nontender. EXTREMITIES: Display decreasing edema in the left arm. SKIN: Left lateral hip incision is healing well. ASSESSMENT: 1. Resolving left total hip. 2. Stable paroxysmal atrial fibrillation with rate control and anticoagulation. 3. Hypertension, controlled to goal. 4. Lymphoma in remission. 5. History of distant gastrointestinal bleed secondary to non-steroidal anti-inflammatory drugs, no recurrence. 6. Constipation secondary to narcotics. 7. Distant history of cancer of the breast. PLAN: 1. Continue Melatonin, add Benadryl at night. 2. Order MiraLAX twice daily in addition to the Dulcolax as needed and the routine docusate twice daily and if no improvement, we will give magnesium citrate. 3. Continue PT and OT and discuss with therapy tomorrow as patient is asking about discharge. Job ID: [id number]
[2020-08-24] MEDS: Polyethylene Glycol 3350 17 GM Packet PO SCH ×2 (09:05→21:31)
[2020-08-24] MEDS: Apixaban 5 MG TAB PO SCH ×2 (09:05→21:23)
[2020-08-24] MEDS: Docusate 100 MG CAP PO SCH ×2 (09:05→21:24)
[2020-08-24] MEDS: Dronedarone HCl 400 MG TAB PO SCH ×2 (09:05→21:25)
[2020-08-24] MEDS: Losartan 25 MG TAB PO SCH (09:09)
[2020-08-24] MEDS: HYDROcodone/Acetaminophen 5/325 mg Tablet PO PRN (18:20)
[2020-08-24] MEDS ORDERED: Melatonin 3 MG TAB PO SCH (21:00)
[2020-08-25] MEDS: HYDROcodone/Acetaminophen 5/325 mg Tablet PO PRN (02:43)
[2020-08-25] MEDS: Levothyroxine 150 MCG TAB PO SCH ×3 (06:32→06:39)
[2020-08-25 07:10] VITALS: TEMP 97.5
[2020-08-25] MEDS: Losartan 25 MG TAB PO SCH (09:48)
[2020-08-25] MEDS: Polyethylene Glycol 3350 17 GM Packet PO SCH (09:48)
[2020-08-25] MEDS: Apixaban 5 MG TAB PO SCH (09:48)
[2020-08-25] MEDS: Docusate 100 MG CAP PO SCH (09:49)
[2020-08-25] MEDS: Dronedarone HCl 400 MG TAB PO SCH (09:49)
[2020-08-25 13:06] VITALS: BP 117/56
== END 2020-08-25 13:00 | disposition home health service (06) | DRG 560 ==
LOC: NAV ACUTE 16:59
PROVIDERS: ADMIT Internal Medicine; ATTEND Internal Medicine
DX: Z47.1 Aftercare following joint replacement surgery (principal); D62 Acute posthemorrhagic anemia; Z96.642 Presence of left artificial hip joint; I48.0 Paroxysmal atrial fibrillation; I10 Essential (primary) hypertension; M19.90 Unspecified osteoarthritis, unspecified site; E03.9 Hypothyroidism, unspecified; G47.00 Insomnia, unspecified; I48.91 Unspecified atrial fibrillation; R53.81 Other malaise; K21.9 Gastro-esophageal reflux disease without esophagitis; K59.00 Constipation, unspecified; T40.605A Adverse effect of unspecified narcotics, initial encounter; Z88.0 Allergy status to penicillin; Z88.8 Allergy status to other drugs, medicaments and biological substances
CPT/HCPCS: 80048; 80053; 85007; 85025; 85027

== ENCOUNTER 2020-09-24 09:58 | Emergency (ER) | payer MEDICARE ==
--- NOTE | 2020-09-24 10:54 | RAD ---
Exam: Left heel 2 views: HISTORY: Pain COMPARISON: None FINDINGS: Fairly prominent Achilles and plantar calcaneal enthesophytes. Bony demineralization. No evidence for fracture, dislocation, or other significant acute osseous abnormality. IMPRESSION: Degenerative change without fracture or dislocation.
== END 2020-09-24 11:15 | disposition home or self-care (01) ==
LOC: NAV ERS 09:58
DX: M79.672 Pain in left foot (principal); I48.91 Unspecified atrial fibrillation; I10 Essential (primary) hypertension; Z79.01 Long term (current) use of anticoagulants; Z79.899 Other long term (current) drug therapy

== ENCOUNTER 2022-04-09 19:23 | Emergency (ER) | payer MEDICARE ==
[2022-04-09 20:18] LABS: #Eosinphils 0.1 thou/uL (0.0-0.7); #Lymphocytes 1.4 thou/uL (1.20-3.40); #Monocytes 0.7 thou/uL (0.11-0.59); #Neutrophils 4.5 thou/uL (1.40-6.50); %Basophils 0.6 % (0.0-1.0); %Eosinophils 1.5 % (0.0-10.0); %Monocytes 10.9 % (0.0-10.0); %Neutrophils 66.9 % (42.0-75.0); Hemoglobin 13.6 g/dL (12.0-16.0); Mean Corpuscular HGB CONC 30.3 g/dL (32.0-36.0); Mean Corpuscular Hemoglobin 29.7 pg (27.0-31.0); Mean Corpuscular Volume 98.2 fL (78.0-98.0); Mean Platelet Volume 9.5 fL (7.4-10.4); Platelet Count 127 thou/uL (130-400); RBC Distribution Width 13.4 % (11.5-14.5); Red Blood Cell (RBC) Count 4.56 mill/uL (4.20-5.40); White Blood Cell (WBC) Count 6.8 thou/uL (4.8-10.8)
[2022-04-09 20:39] LABS: ALT (SGPT) 18 U/L (8-55); AST (SGOT) 25 U/L (5-34); Albumin 4.3 g/dL (3.4-4.8); Alkaline Phosphatase 124 U/L (40-110); Anion Gap 17 mmol/L (10-20); BUN (Urea Nitrogen) 23 mg/dL (9.8-20.1); Bilirubin, Total 1.6 mg/dL (0.2-1.2); Calc. Creatinine Clearance 0 mL/min (70-130); Calcium 9.5 mg/dL (7.8-10.44); Carbon Dioxide 26 mmol/L (23-31); Chloride 104 mmol/L (98-107); Globulin 3.2 g/dL (2.4-3.5); Glucose 104 mg/dL (83-110); Potassium 4.7 mmol/L (3.5-5.1); Protein, Total 7.5 g/dL (5.8-8.1); Sodium 142 mmol/L (136-145)
[2022-04-09 20:41] LABS: INR-International Normal Ratio 1.5
[2022-04-09 20:45] LABS: PTT 45.3 sec (22.9-36.1)
== END 2022-04-09 21:44 | disposition home or self-care (01) ==
LOC: NAV ERS 19:23
DX: R21 Rash and other nonspecific skin eruption (principal); I48.91 Unspecified atrial fibrillation; I10 Essential (primary) hypertension; K21.9 Gastro-esophageal reflux disease without esophagitis; Z79.899 Other long term (current) drug therapy; Z79.01 Long term (current) use of anticoagulants
CPT/HCPCS: 80053; 85025; 85610; 85730; 99283

== ENCOUNTER 2022-06-19 21:33 | Emergency (ER) | payer MEDICARE ==
[2022-06-19] MEDS ORDERED: HYDROcodone/Acetaminophen 5/325 mg Tablet ONE (22:09)
[2022-06-19 22:23] LABS: #Eosinphils 0.1 thou/uL (0.0-0.7); #Lymphocytes 1.4 thou/uL (1.20-3.40); #Monocytes 0.6 thou/uL (0.11-0.59); #Neutrophils 2.7 thou/uL (1.40-6.50); %Eosinophils 2.8 % (0.0-10.0); %Lymphocytes 28.9 % (21.0-51.0); %Monocytes 11.4 % (0.0-10.0); %Neutrophils 55.9 % (42.0-75.0); Hemoglobin 12.9 g/dL (12.0-16.0); Mean Corpuscular Hemoglobin 30.7 pg (27.0-31.0); Mean Platelet Volume 8.2 fL (7.4-10.4); Platelet Count 171 thou/uL (130-400); RBC Distribution Width 13.5 % (11.5-14.5); Red Blood Cell (RBC) Count 4.19 mill/uL (4.20-5.40); White Blood Cell (WBC) Count 4.9 thou/uL (4.8-10.8)
[2022-06-19 22:37] LABS: ALT (SGPT) 14 U/L (8-55); AST (SGOT) 18 U/L (5-34); Alkaline Phosphatase 106 U/L (40-110); Anion Gap 16 mmol/L (10-20); BUN (Urea Nitrogen) 20 mg/dL (9.8-20.1); Bilirubin, Total 1.4 mg/dL (0.2-1.2); Calc. Creatinine Clearance 0 mL/min (70-130); Calcium 9.4 mg/dL (7.8-10.44); Carbon Dioxide 22 mmol/L (23-31); Chloride 108 mmol/L (98-107); Estimated GFR 70; Globulin 3.2 g/dL (2.4-3.5); Glucose 86 mg/dL (83-110); Protein, Total 7.2 g/dL (5.8-8.1); Sodium 142 mmol/L (136-145)
== END 2022-06-19 22:52 | disposition home or self-care (01) ==
LOC: NAV ERS 21:33
DX: I77.6 Arteritis, unspecified (principal); I10 Essential (primary) hypertension; K21.9 Gastro-esophageal reflux disease without esophagitis; Z79.899 Other long term (current) drug therapy
CPT/HCPCS: 36415; 80053; 85025; 99283